=== PATIENT | male | born 1980 | race Caucasian/White ===

== ENCOUNTER 2021-07-09 02:42 | Emergency (ER) | payer SELFPAY ==
[~2021-07-09] VITALS: Ht 172.7 cm; Wt 73.0 kg
[2021-07-09] MEDS ORDERED: HYDROCODONE/ACETAMINOPHEN 5/325MG TABLET PO ONE (03:15)
[2021-07-09] MEDS ORDERED: TETANUS, DIPHTHERIA, PERTUSSIS VAC/PF 0.5ML (>7YR OLD) IM ONE (03:15)
[2021-07-09] MEDS ORDERED: AMOXICILLIN/POTASSIUM CLAVULANATE 875/125MG TAB PO ONE (03:15)
[2021-07-09] MEDS ORDERED: CEPH500T MT (04:42)
[2021-07-09] MEDS ORDERED: IBUP-2029 MT (04:43)
[2021-07-09 05:11] VITALS: BP 126/83
== END 2021-07-09 05:19 ==
LOC: ER 02:42
DX: S61.233A Puncture wound without foreign body of left middle finger without damage to nail, initial encounter (principal); W34.09XA Accidental discharge from other specified firearms, initial encounter; Y93.89 Activity, other specified; Y92.89 Other specified places as the place of occurrence of the external cause; Y99.8 Other external cause status
CPT/HCPCS: 73140; 90471; 90715; 99283; A4217